=== PATIENT | male | born 1980 | race Caucasian/White ===

== ENCOUNTER 2016-08-24 11:59 | Emergency (ER) | payer MEDICAID ==
[~2016-08-24] VITALS: Ht 172.7 cm; Wt 82.6 kg
[~2016-08-24 11:59] MED LIST: ALBUPOW26; AMOX-263 PO; CHL12OR PO
[2016-08-24 12:38] VITALS: BP 125/87
== END 2016-08-24 14:31 | disposition home or self-care (01) ==
LOC: ER 11:59
DX: S29.012A Strain of muscle and tendon of back wall of thorax, initial encounter (principal); F17.210 Nicotine dependence, cigarettes, uncomplicated; V49.9XXA Car occupant (driver) (passenger) injured in unspecified traffic accident, initial encounter; Y93.89 Activity, other specified; Y99.8 Other external cause status; Y92.488 Other paved roadways as the place of occurrence of the external cause

== ENCOUNTER 2019-04-16 16:55 | Emergency (ER) | payer MEDICAID ==
[~2019-04-16] VITALS: Ht 172.7 cm; Wt 81.6 kg
[2019-04-16 19:06] VITALS: BP 141/98
[2019-04-16] MEDS ORDERED: TETANUS-DIPTH-ACEL PERTUSSIS 0.5ML SYRG IM ONE (20:45)
== END 2019-04-16 20:54 | disposition home or self-care (01) ==
LOC: ER 17:04
DX: S01.81XA Laceration without foreign body of other part of head, initial encounter (principal); Y08.89XA Assault by other specified means, initial encounter; Y93.89 Activity, other specified; Y99.8 Other external cause status; Y92.89 Other specified places as the place of occurrence of the external cause
CPT/HCPCS: 12011; 70450; 90471; 90715

== ENCOUNTER 2025-01-15 10:36 | Emergency (ER) | payer MEDICAID ==
[~2025-01-15] VITALS: Ht 172.7 cm; Wt 85.5 kg
--- NOTE | 2025-01-15 12:34 | ED.PDOC ---
General HPI Comments A 79-azom-cvh-male with no past medical history presents to the emergency department with a chief complaint of RT groin pain onset 4 days. Patient states he noticed a small lump on RT groin 4 days ago, for the past 2 days noticed it has grown, swelling around region, itching and discomfort. Patient has taken warm baths, Ibuprofen for pain, with no improvement of symptoms. No other symptoms or modifying factors present at this time. Denies fevers chills night sweats Denies nausea vomiting diarrhea Denies dysuria urgency frequency Denies history of UTI Denies blood in the urine or semen Denies recent instruments/toys and urethra Denies family history of prostate issues Chief Complaint: Pelvic Pain Time Seen by MD: 11:55 Primary Care Provider: ZUHAIR Negro notes: Nurses Notes, Medications, Allergies Allergies: Coded Allergies: NO KNOWN ALLERGIES (Unverified , 07/31/12) Home Meds Active Scripts Chlorhexidine Gluconate (Mouth (CHLORHEXIDINE ORAL RINSE) 473 Ml So, 15 ML PO BID, #1 BOTTLE 15 ml swish and spit bid for 5 days Prov:JUANA JENKINS N.P. 08/11/13 Amoxicillin & Pot Clavulanate (Augmentin) 875 Mg Tab, 875 MG PO BID, #20 TAB Prov:JUANA JENKINS N.P. 08/11/13 Reported Medications Albuterol (Albuterol) Pow 07/31/12 Information Source: Patient, Relative Mode of Arrival: Ambulatory Severity: Moderate Timing: Days Duration: Since onset Prehospital treatment: Pain Meds (Ibuprofen) Onset: Spontaneous Symptoms: None (lump RT groin) History of: None Location: Other (RT groin) Penile discharge: None Modifying factors: None associated signs and symptoms: Other Past Medical History PAST MEDICAL HISTORY: Denies Surgical History: Denies all surgeries Family History Family History: Unknown Social History Smoker: Cigarettes Alcohol: Denies ETOH Use Drugs: Denies Drug Use Lives In: Home All Other Systems: Reviewed and Negative (as per HPI) Physical Exam General Appearance: Normal HEENT: Normal ENT Inspection, Pharynx Normal, TMs Normal Neck: Full Range of Motion, Non-Tender, Normal, Normal Inspection Respiratory: Chest Non-Tender, Lungs Clear, No Accessory Muscle Use, No Respiratory Distress, Normal Breath Sounds Cardiovascular: No Edema, No JVD, No Murmur, No Gallop, Normal Peripheral Pulses, Regular Rate/Rhythm Breast Exam: Deferred Gastrointestinal: No Organomegaly, Non Tender, No Pulsatile Mass, Normal Bowel Sounds, Soft Genitalia: Deferred Pelvic: Other (swelling noted to RT ingunial region, reproducible, no signs of incarceration ) Rectal: Deferred Extremities: No calf tenderness, Normal capillary refill, Normal inspection, Normal range of motion, Non-tender, No pedal edema Musculoskeletal : Apperance: Normal Neurologic: Alert, 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 Was a procedure done?: No Differential Diagnosis Kidney stone (Female): Other X-Ray, Labs, Meds, VS Vital Signs Date Time Temp Pulse Resp B/P (MAP) Pulse Ox O2 Delivery O2 Flow Rate FiO2 01/15/25 13:13 72 17 96 Room Air 01/15/25 13:13 98.0 72 17 132/78 (96) 96 98.0 01/15/25 11:02 97.1 70 22 135/85 (102) 98 97.1 X-Ray, Labs, Meds, VS Comment A 80-cakb-quo-male with no past medical history presents to the emergency department with a chief complaint of RT groin pain onset 4 days. Patient arrives alert and oriented, ABC's intact, afebrile, vital signs stable, saturating well in room air The patient presented to the Emergency Department with inguinal pain. Work up (as noted above) demonstrated possible inguinal hernia, reducible. Patients physical exam showed no signs of incarceration, or strangulation. The patients site was nontender and reducible manually. His bowel movements have been normal and there is no vomiting or evidence of obstrucion.The patient is feeling better and repeat abdominal pain demonstrates significant tenderness or guarding. No evidence of surigcal abdomen. Patient understands diagnosis and instructions and had no further questions. Additional MDM Review of External, Non-ED records: External records reviewed. Discussion with independent historian (EMS, family) history obtained from the patient/parents (if applicable) at bedside Chronic conditions affecting care: None Social determinants of health affecting care: cigarettes Consideration of admission (observation or admission): I considered escalation of care to admission for this patient, however given the reassuring workup, the patient is safe for outpatient management. Time of 1ST Reevaluation: 12:25 Reevaluation 1ST: Unchanged Time of 2ND Reevaluation: 15:00 Patient Education/Counseling: Diagnosis, Treatment, Prognosis Family Education/Counseling: Diagnosis, Treatment, Prognosis Departure 1 Departure Time of Disposition: 15:22 Impression: Primary Impression: Inguinal hernia Qualified Codes: K40.20 - Bilateral inguinal hernia, without obstruction or gangrene, not specified as recurrent Disposition: 01 HOME / SELF CARE / HOMELESS Condition: Fair Discharged With: Self Critical Care Note Critical Care Time?: No Stability Stability form required: No Heart Score Heart Score: Heart Score Response (Comments) Value History N/A 0 EKG N/A 0 Age N/A 0 Risk Factors N/A 0 Troponin N/A 0 Total 0 I personally scribed for PABLO HUSSEIN NP ([email or web address]) on 01/15/25 at 12:34. Electronically submitted by Cathy Arango ([email or web address]). PABLO HUSSEIN NP Jan 15, 2025 12:34
[2025-01-15 13:13] VITALS: BP 132/78; PULSE 72; RESP 17; TEMP 98; O2SAT 96
--- NOTE | 2025-01-15 13:28 | DVH ---
Technique: Real-time ultrasound images through the pelvis using a transabdominal transducer. For bett er evaluation of the ovaries and endometrial stripe, an endovaginal transducer was used. Indication: Suspected Hernia. R/o incarcerated Comparison: None Findings: Sonographic images of the inguinal region of interest were obtained. There appears to be fat containi ng hernia measuring 3.8 x 2.1 cm. No fluid collection/edema seen. Recommend CT pelvis to further travis acterize, especially prior to any surgical intervention Impression: 1. As above
--- NOTE | 2025-01-15 14:53 | DVH ---
CT CT AB PEL WO CON-NO ORAL OR IV INDICATION: fat containing hernia measuring 3.8 x 2.1 cm. EXAM DATE: 01/15/2025 02:09 PM COMPARISON: None RADIATION DOSE: CTDIvol: 8 mGy, DLP: 736 mGy*cm PROCEDURE: Helical CT images were obtained of the abdomen and pelvis without IV contrast Sagittal and coronal reconstructions are provided. ORAL CONTRAST: None. ADDITIONAL IMAGES / REFORMATS: None All C T scans at this medical facility are performed using dose modulation techniques as appropriate to a p erformed exam including the following: Automated exposure control was utilized; adjustment of the MA and/or KV according to patient size; and use of iterative reconstruction technique. FINDINGS: LUNG BASE: Normal. LIVER: Normal. GALLBLADDER AND BILIARY TREE: No calcified gallstones. Normal caliber wall. No intra- or extrahepatic biliary ductal dilation. PANCREAS: Normal. SPLEEN: Normal. BOWEL: Normal. ADRENALS: Normal. KIDNEYS AND URETER: Pelvic right kidney. BLADDER: Normal. REPRODUCTIVE ORGANS: Normal. LYMPH NODES:No lymphadenopathy. PERITONEUM: No ascites or free air. No other fluid collection. VESSELS: Scattered atherosclerotic calcifications are noted. RETROPERITONEUM: Normal. ABDOMINAL WALL: Bilateral right > left fat containing inguinal hernias. BONES: Scattered osseous degenerative changes are noted. IMPRESSION: No acute intraabdominal abnormality. Bilateral right > left fat containing inguinal hernias.
== END 2025-01-15 15:41 | disposition home or self-care (01) ==
LOC: ER 10:48
DX: K40.90 Unilateral inguinal hernia, without obstruction or gangrene, not specified as recurrent (principal); F17.210 Nicotine dependence, cigarettes, uncomplicated
CPT/HCPCS: 74176; 76856